=== PATIENT | female | born 1975 | race African-American/Black ===

== ENCOUNTER 2023-07-02 04:06 | Emergency (ER) | payer MEDICAID, OTHER ==
[~2023-07-02] VITALS: Ht 160 cm; Wt 95.8 kg
[~2023-07-02 04:06] MED LIST: HYDR-3927 PO
[2023-07-02 04:13] VITALS: O2SAT 100
[2023-07-02] MEDS ORDERED: KETOROLAC 60MG/2ML VIAL IM ONE (05:45)
[2023-07-02] MEDS ORDERED: METOCLOPRAMIDE HCL 10MG TABLET PO ONE (05:45)
[2023-07-02 05:54] LABS: CLARITY URINE CLEAR (CLEAR); COLOR URINE YELLOW (YELLOW); GLUCOSE URINE NEGATIVE (NEGATIVE); KETONES URINE NEGATIVE (NEGATIVE); LEUKOCYTE ESTERASE URINE NEGATIVE (NEGATIVE); NITRITE URINE NEGATIVE (NEGATIVE); OCCULT BLOOD URINE NEGATIVE (NEGATIVE); PH URINE 5.5 (4.5-8.0); PROTEIN URINE NEGATIVE (NEGATIVE); SPECIFIC GRAVITY URINE 1.027 (1.005-1.030); UROBILINOGEN URINE 0.2 E.U./dL (0.2-1.0)
[2023-07-02] MEDS ORDERED: IBUP-2028 PO (06:53)
[2023-07-02] MEDS ORDERED: METO-293 PO (06:53)
[2023-07-02 07:06] VITALS: BP 160/85; PULSE 60; RESP 20; TEMP 98.4
== END 2023-07-02 07:11 | disposition home or self-care (01) ==
LOC: ER 04:06
DX: R51.9 Headache, unspecified (principal); I10 Essential (primary) hypertension
CPT/HCPCS: 81003; 81025; 93005; 96372; 99284; J8597; J1885; Z7610